=== PATIENT | female | born 1995 | race Caucasian/White ===

== ENCOUNTER 2023-07-14 15:02 | Emergency (ER) | payer OTHER ==
[2023-07-14 15:49] VITALS: BP 123/79; PULSE 66; RESP 18; TEMP 98; BMI 25.4
== END 2023-07-14 15:59 | disposition home or self-care (01) ==
LOC: JERFT 15:02
DX: T78.1XXA Other adverse food reactions, not elsewhere classified, initial encounter (principal); R20.2 Paresthesia of skin; R07.89 Other chest pain
CPT/HCPCS: 99283-25